=== PATIENT | female | born 1960 | race Caucasian/White ===

== ENCOUNTER → 2018-06-01 13:31 | Outpatient (CLI) | payer OTHER, SELFPAY ==
--- NOTE | 2018-06-01 | DI.RAD.S_ITS ---
PROCEDURE: XR HAND LT MIN 3V INDICATIONS: Bilateral Joint pain TECHNIQUE: 3 views of the hand(s) acquired. COMPARISON: None. FINDINGS: Bones: Osteophytic changes are noted involving left second and third DIP joints with joint space narrowing, subchondral sclerosis and marginal osteophyte formation. Mild osteoarthritic changes along radial aspect of left wrist are also seen. No fractures or dislocations. Carpal bones are normally aligned. No suspicious bony lesions. Soft tissues: No suspicious soft tissue calcifications. 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 No gross bone erosive changes. No fracture or dislocation. Dictated by: Maximino Chavez M.D. on 06/01/2018 at 18:38 Approved by: Maximino Chavez M.D. on 06/01/2018 at 18:40
--- NOTE | 2018-06-01 | DI.RAD.S_ITS ---
PROCEDURE: XR CHEST 2V INDICATIONS: Dyspnea/nicotine dependence TECHNIQUE: 2 views of the chest were acquired. COMPARISON: None. FINDINGS: Surgical changes and devices: None. Lungs and pleura: Lungs are clear. No pleural effusions or pneumothorax. Mediastinum: Mediastinal contours are normal. Heart size is normal. Bones and chest wall: No suspicious bony abnormalities. Soft tissues appear unremarkable. IMPRESSION: No acute cardio pulmonary pathology. Dictated by: Maximino Chavez M.D. on 06/01/2018 at 18:38 Approved by: Maximino Chavez M.D. on 06/01/2018 at 18:38
--- NOTE | 2018-06-01 | DI.RAD.S_ITS ---
PROCEDURE: XR HAND RT MIN 3V INDICATIONS: Bilateral Joint pain TECHNIQUE: 3 views of the hand(s) acquired. COMPARISON: None. FINDINGS: Bones: Osteoarthritic changes are noted along radial aspect of right wrist joint more prominent involving first CMC joint. Osteophytic change is also noted throughout interphalangeal joint. Small subchondral cyst formation involving radial aspect of the third proximal phalangeal head and third middle phalangeal head. No definite bony erosive changes. No fractures or dislocations. Carpal bones are normally aligned. No suspicious bony lesions. Soft tissues: No suspicious soft tissue calcifications. IMPRESSION: Osteoarthritic changes in the right hand and wrist as above. No fracture or dislocation. No definite bony erosive changes. Dictated by: Maximino Chavez M.D. on 06/01/2018 at 18:40 Approved by: Maximino Chavez M.D. on 06/01/2018 at 18:41
== END ==
PROVIDERS: PCP Physician Assistant Medical; Visit Provider Physician Assistant Medical
DX: R06.00 Dyspnea, unspecified (principal); M25.542 Pain in joints of left hand; M25.541 Pain in joints of right hand; M19.042 Primary osteoarthritis, left hand; M19.041 Primary osteoarthritis, right hand; Z87.891 Personal history of nicotine dependence
CPT/HCPCS: 71046; 73130

== ENCOUNTER → 2018-07-06 10:49 | Outpatient (CLI) | payer OTHER, SELFPAY ==
--- NOTE | 2018-08-10 16:50 | PM.PFT.1 ---
Pulmonary Function Test Referral & Results Date Patient Seen: 07/06/18 Requesting provider: Lin Rahman Results: The spirometry demonstrates an FVC of 2.98 L which is 89% of predicted. The FEV1 was measured at 2.18 L which is 84% of predicted. The FEV1/FVC ratio was 73 which is 93% of predicted. Following the administration of bronchodilator there was 12% improvement in FEV1 and a 71% improvement in FEF 25-75%. Lung volumes show an SVC of 3.22 L which is 104% of predicted. The diffusing capacity was measured at 27.42 which is 113% of predicted. The maximum voluntary ventilation was reduced Interpretation: This study demonstrates mild obstructive lung disease with some limited evidence of benefit following bronchodilator administration based on improvement in FEV1 and FEF 25-75%
== END ==
PROVIDERS: PCP Physician Assistant Medical; Visit Provider Physician Assistant Medical
DX: R06.00 Dyspnea, unspecified (principal); Z87.891 Personal history of nicotine dependence
CPT/HCPCS: 94060; 94726; 94729

== ENCOUNTER → 2018-09-28 14:58 | Outpatient (CLI) | payer OTHER, SELFPAY ==
--- NOTE | 2018-09-28 | DI.ECHO.S_ITS ---
[facility] +---------+ : : [address] : : : : [id number] : : : : Phone: [phone]+ Echocardiogram Report + + :Name: MADAY WARREN Study Date: 09/28/2018 Height: 64 in : :[facility] Weight: 142 lb : : Gender: Female BSA: 1.7 m2 : :: 1960 Age: 58 yrs BP: 126/82 mmHg: :Reason For Study: Chest pain : : Performed By: Zuri Lewis : :Referring: JEF KONG : + + Interpretation Summary Normal left ventricle size with ejection fraction 60-65%. Mildly dilated left atrium. Mild mitral regurgitation. Mild tricuspid regurgitation. The right ventricular systolic pressure is estimated to be at least 27 mmHg based on an estimated right atrial pressure of 3 mm Hg. Procedure: A two-dimensional transthoracic echocardiogram with color flow and Doppler was performed. The study quality was technically adequate. There is no prior echocardiogram noted for this patient. The patient was in normal sinus rhythm during the exam. Left Ventricle: The left ventricle is normal in size. There is normal left ventricular wall thickness. The ejection fraction is estimated to be 60-65%. There are no focal wall motion abnormalities. Diastolic parameters suggest probable normal left ventricular diastolic function and normal filling pressures. Right Ventricle: The right ventricle grossly appears normal in size with probable normal systolic function. Atria: The left atrium is mildly dilated. Right atrial size is normal. The interatrial septum is intact with no evidence for an atrial septal defect. Mitral Valve: The mitral valve is grossly normal. There is mild mitral regurgitation. Aortic Valve: The aortic valve is trileaflet. The aortic valve opens well. There is trace aortic regurgitation. Tricuspid Valve: The tricuspid valve leaflets are thin and pliable. There is mild tricuspid regurgitation. The right ventricular systolic pressure is estimated to be at least 27 mmHg based on an estimated right atrial pressure of 3 mm Hg. Pulmonic Valve: The pulmonic valve is normal in structure and function. There is no pulmonic valvular regurgitation. Great Vessels: The aortic root is normal size. The ascending aorta is at the upper limits of normal in size. The aortic arch is at the upper limits of normal in size. The IVC is of normal diameter and collapses greater than 50% with a sniff. This suggests a low right atrial pressure of 3 mm Hg. Pericardium/ Pleura There is no pericardial effusion. There is no pleural effusion. MMode/2D Measurements & Calculations LVIDd: 4.8 cm Ao root diam: 3.5 cm LVIDs: 3.3 cm Aortic Jxn: 2.7 cm FS: 31.8 % asc Aorta Diam: 3.6 cm EPSS: 0.45 cm Ao Arch Diam (Prox Trans): 3.1 cm IVSd: 1.1 cm LVPWd: 0.95 cm LV kaufman. diameter/BSA (cm/m^2): 2.8 LV sys. diameter/BSA (cm/m^2): 1.9 LA dimension: 3.2 cm RA long axis: 4.8 cm LA A2 area: 24.7 cm2 RA area: 16.4 cm2 LA A4 area: 18.4 cm2 RA vol: 47.2 ml LA length (vol): 5.3 cm RA : 27.9 ml/m2 LA vol: 73.3 ml IVC diam: 1.5 cm LA vol index: 43.3 ml/m2 RVDd major: 4.5 cm RVD1 (basal): 3.7 cm RVD2 (mid): 3.0 cm Doppler Measurements & Calculations Ao V2 max: 128.2 cm/sec AI P1/2t: 726.1 msec Ao V2 mean: 82.0 cm/sec AI dec slope: 155.6 cm/sec2 Ao max P.6 mmHg Ao mean P.2 mmHg Ao V2 VTI: 30.5 cm MV E max jose: 64.7 cm/sec TR max jose: 259.1 cm/sec MV A max jose: 51.1 cm/sec TR max P.8 mmHg MV E/A: 1.3 PA V2 max: 62.8 cm/sec Med Peak E' Jose: 7.9 cm/sec PA V2 mean: 45.2 cm/sec E/E' med: 8.2 PA mean P.91 mmHg Lat Peak E' Jose: 10.0 cm/sec PA Accel Time: 0.16 sec E/E' lat: 6.5 E/e' average: 7.3 MV dec time: 0.21 sec MV P1/2t: 63.6 msec MR ERO: 0.10 cm2 MV P1/2t max jose: 65.2 cm/sec MR flow rate: 57.1 cm3/sec MVA(P1/2t): 3.5 cm2 MR PISA radius: 0.48 cm Electronically signed by: Lamberto Horn on Reading Physician:09/28/2018 04:59 PM
== END ==
PROVIDERS: PCP Physician Assistant Medical; Visit Provider Internal Medicine Cardiovascular Disease
DX: I34.0 Nonrheumatic mitral (valve) insufficiency (principal); I07.1 Rheumatic tricuspid insufficiency; R07.9 Chest pain, unspecified; R06.09 Other forms of dyspnea
CPT/HCPCS: 93306

== ENCOUNTER → 2018-12-06 13:43 | Outpatient (CLI) | payer OTHER, SELFPAY ==
--- NOTE | 2018-12-06 | DI.MG.S_ITS ---
BILATERAL DIGITAL DIAGNOSTIC MAMMOGRAM 3D/2D WITH AUGMENTATION: 12/06/2018 CLINICAL: Implant status left breast. Comparison is made to exams dated: 01/23/2015 mammogram, 02/07/2011 mammogram, and 02/15/2010 mammogram - [facility]. There are scattered fibroglandular elements in both breasts. No significant masses, calcifications, or other findings are seen in either breast. Bilateral saline breast implants are again noted. The right side appears stable and intact. There is slight decreased size of the left breast implant with mild interval change in the appearance of the contours of the implant. Left implant shell demonstrates more irregular margins and folds compared to prior studies. IMPRESSION: INCOMPLETE: NEEDS ADDITIONAL IMAGING EVALUATION No mammographic evidence for malignancy. The left implant is likely partially collapsed and has an asymmetric appearance when compared to prior mammograms and the right side. An ultrasound is recommended for further evaluation of the left implant. This is scheduled to immediately follow this exam. The right implant is intact and has a stable appearance. This exam was interpreted at Station ID: [id number]. NOTE: For mammograms, a report in lay terms will be sent to the patient. Approximately 15% of breast malignancies will not be visualized mammographically. In the management of a palpable breast mass, a negative mammogram must not discourage biopsy of a clinically suspicious lesion. Electronically Signed By: David Constantino M.D. aty/:12/06/2018 14:36:26 ACR BI-RADS Category 0: Incomplete [id number]
--- NOTE | 2018-12-06 | DI.US.S_ITS ---
ULTRASOUND OF LEFT BREAST: 12/06/2018 CLINICAL: Implant status left breast. Comparison is made to exams dated: 12/06/2018 mammogram - [facility], 02/07/2011 mammogram, and 01/23/2015 mammogram - [facility]. Real-time ultrasound of the left breast was performed. Ocampo scale images of the real-time examination were reviewed. There are no suspicious sonographic abnormalities identified in the left breast. No intracapsular or extracapsular fluid collections seen. The overal implant appears intact but there are numerous radial folds visualized on the left side compared to a relatively well distended right breast implant which correlates with the visualized contour changes of the left breast implant. IMPRESSION: BENIGN No sonographic evidence for malignancy. Although no definite defect identified in the left breast implant, there are findings suggesting a possible slow implant leak given combination of numerous radial folds on the left compared to the right side as well as visualized contour changes on today's mammogram. Recommend further evaluation with surgical consultation. A 1 year screening mammogram is recommended. This exam was interpreted at Station ID: [id number]. Electronically Signed By: David Constantino M.D. aty/:12/06/2018 16:13:30 letter sent: Clinical Evaluation Ultrasound BI-RADS: 2 Benign
== END ==
PROVIDERS: PCP Physician Assistant Medical; Visit Provider Physician Assistant Medical
DX: R92.8 Other abnormal and inconclusive findings on diagnostic imaging of breast (principal); Z98.82 Breast implant status
CPT/HCPCS: 76642; 77066; G0279

== ENCOUNTER → 2019-01-07 09:54 | Outpatient (CLI) | payer OTHER, SELFPAY ==
--- NOTE | 2019-01-07 10:52 | PM.TREADMILL ---
Cardiac Stress Test Report Referral & Results Date Patient Seen: 01/07/19 Requesting provider: Tucker Contreras Indication: Dyspnea and palpitations Rest ECG: Unremarkable Procedure Note: Today following both written and verbal informed consent, the patient was exercised according to a standard [facility] protocol. The patient exercised for a total of 5 minutes 37 seconds achieving a maximum heart rate of 158. Patient's maximum systolic blood pressure was 160. This was an estimated 7.0 MET's. Exercise was terminated at that point because of severe fatigue reported by the patient even though she did not appear to be dyspneic at all There are no ST-T segment changes Normal heart rate and blood pressure response Oxygen saturation remained normal throughout Functional aerobic impairment rates about 5% on the sedentary scale or 18% on the active scale In recovery patient did have occasional PAC and PVC including what appeared to be 2 or 3 bursts of 4-5 beat runs of SVT Impression: No evidence of ischemia. average exercise capacity Dyspnea certainly out of proportion to any findings Minor supraventricular dysrhythmias above Please note: Actual ECG tracings can be found in the PACS system.
== END ==
PROVIDERS: Family Provider Physician Assistant Medical; PCP Physician Assistant Medical; Visit Provider Internal Medicine Cardiovascular Disease
DX: R07.89 Other chest pain (principal); R00.2 Palpitations; R06.00 Dyspnea, unspecified
CPT/HCPCS: 93016; 93017; 93018

== ENCOUNTER 2019-12-15 13:13 | Emergency (ER) | payer OTHER, SELFPAY ==
[2019-12-15 13:33] VITALS: BP 177/89; PULSE 59; RESP 17; TEMP 36.8; O2SAT 98; BMI 24.9
--- NOTE | 2019-12-15 13:42 | DI.RAD.S_ITS ---
PROCEDURE: XR KNEE LT 3V INDICATIONS: fell at work, knee pain TECHNIQUE: 3 views of the knee were acquired. COMPARISON: None. FINDINGS: Bones: No fractures or dislocations. No suspicious bony lesions. Soft tissues: No joint effusion. No suspicious soft tissue calcifications. IMPRESSION: 1. No fracture or dislocation. Dictated by: Lobito Adkins M.D. on 12/15/2019 at 13:13 Approved by: Lobito Adkins M.D. on 12/15/2019 at 13:13
--- NOTE | 2019-12-16 01:32 | ED.LOWEXIN ---
HPI - Extremity Injury (Lower) <GAYATRI Damon - Last Filed: 12/16/19 01:50> General Chief Complaint: Extremity Injury, Lower Stated Complaint: Fell at work 12/04, left knee injury not improving Time Seen by Provider: 12/15/19 13:50 Source: patient Mode of arrival: Ambulatory Limitations: no limitations History of Present Illness HPI Narrative: This is a pleasant 59-year-old female, former smoker, who had multiple upper extremity orthopedic surgery presents to ED with chief complain of pain around left patella. 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 She felt a popping sensation during the fall. She has been using ice pack and ibuprofen since the injury. She reports difficulty walking and bearing weight on affected leg and since then she feels frequent puffs and clicking sensation on affected leg. Patient reports constant aching pain which increases with walking up and down the stairs. Patient denies previous injury to affected knee or leg. Patient reports intact sensation and is able to move her toes distally. Related Data Allergies Allergy/AdvReac Type Severity Reaction Status Date / Time No Known Drug Allergies Allergy Verified 12/15/19 14:56 Review of Systems <GAYATRI Damon - Last Filed: 12/16/19 01:50> Review of Systems Narrative: General: Denies fever, chills, fatigue, malaise, sweats. HEENT: Denies sinus pain, ear pain, sore throat, difficulty swallowing, dizziness. Respiratory: Denies dyspnea, cough, wheezing, hemoptysis, sputum. Cardiovascular: Denies chest pain, palpitations, orthopnea, edema. Musculoskeletal: See HPI Skin: Denies rash, skin lesions, or other. Neurologic: Denies weakness, headache, numbness, change in speech, confusion, seizures, incoordination. Patient History <GAYATRI Damon - Last Filed: 12/16/19 01:50> Surgical History H/O breast augmentation (Acute) History of rotator cuff surgery (Acute) History of surgery on wrist (Acute) Social History Smoking Status: Former smoker Smoking Status: Former smoker alcohol intake frequency: 0-2 drinks per day Substance Use Type: does not use Exam <GAYATRI Damon - Last Filed: 12/16/19 01:50> Narrative Exam Narrative: General appearance: well developed, well nourished, in no acute distress. Head: normocephalic, atraumatic, no scalp lesions, non-tender. ENT: Hearing grossly intact. Airway patent. Neck/Thyroid: neck supple, full range of motion, no visible masses or meningeal signs. No JVD, non-tender without lymphadenopathy. Skin: no suspicious rashes, lesions over visible areas. Warm and dry and appropriate color for ethnicity. Heart: no clubbing, no cyanosis, no edema. Lungs: Breathing even and unlabored. No stridor. No accessory muscles used. Able to speak in full sentences. Chest: normal shape and expansion. Abdomen: non-obese, non-distended. Neurologic: alert and oriented. Cognitive exam, [employer] and PNS grossly intact on informal exam. Psych: good eye contact, normal affect. Initial Vital Signs Initial Vital Signs: Vital Signs Temperature 98.3 F 12/15/19 13:33 Pulse Rate 59 L 12/15/19 13:33 Respiratory Rate 17 12/15/19 13:33 Blood Pressure 177/89 H 12/15/19 13:33 Pulse Oximetry 98 12/15/19 13:33 Extrem Left lower extremity: hip/thigh Details: normal ROM; no tenderness and no swelling, knee Details: tenderness Location: of the patella, of the medial joint line, of the lateral joint line, of the pre-patellar area and of the infrapatellar area, normal ROM and knee ligament exam normal; no swelling, no abrasions, no lacerations, no ecchymosis, no crepitus, no deformity and no unusual warmth, lower leg Details: normal to inspection; no tenderness and edema noted and foot Details: normal capillary refill, normal to inspection, toes with normal ROM, vascular exam Details: dorsalis pedis pulse present and motor-sensory exam Details: light-touch normal; no tenderness <Sridevi Padilla DO - Last Filed: 12/21/19 17:21> Initial Vital Signs Initial Vital Signs: Vital Signs Temperature 98.3 F 12/15/19 13:33 Pulse Rate 59 L 12/15/19 13:33 Respiratory Rate 17 12/15/19 13:33 Blood Pressure 177/89 H 12/15/19 13:33 Pulse Oximetry 98 12/15/19 13:33 Procedures <[facility] SandraKIRK McnallyP - Last Filed: 12/16/19 01:50> Orthopedic Splinting/Casting Injury #1: Side: left Lower Extremity Injury Location: knee Lower Extremity Immobilizer: Noe wrap Post splinting neuro exam: intact Post splinting vascular exam: intact Placed by: Nursing Scores <Gildardo PickensKIRK MurrayP - Last Filed: 12/16/19 01:50> GCS Zeyad coma scale eye opening: Spontaneous Zeyad coma scale verbal response: Orientated Winslow coma scale motor response: Obey commands Zeyad coma scale total score: 15 MDM - Extremity Injury (Lower) <Gildardo PickensKIRK PalumboP - Last Filed: 12/16/19 01:50> Differential Diagnosis Differential diagnosis: Likely acute internal derangement of knee and other (Patella fracture, knee sprain, knee strain) Medical Records Attestation: I reviewed the patient's medical records. Imaging Data XR Knee-LT: Radiologist's Impression: [place] [address] XRay Report Signed Patient: Sherry Magdaleno [facility]#: [id number] : 1960Acct:[id number] Age/Sex: 59 / FDate of Service: 12/15/19 Loc: ED Accession Number: [id number] Procedure: XR knee LT 3V Ordering Provider: Sridevi Padilla D.O. PROCEDURE: XR KNEE LT 3V INDICATIONS: fell at work, knee pain TECHNIQUE: 3 views of the knee were acquired. COMPARISON: None. FINDINGS: Bones: No fractures or dislocations. No suspicious bony lesions. Soft tissues: No joint effusion. No suspicious soft tissue calcifications. IMPRESSION: 1. No fracture or dislocation. Dictated by: Lobito Adkins M.D. on 12/15/2019 at 13:13 Approved by: Lobito Adkins M.D. on 12/15/2019 at 13:13 [facility] Narrative Medical decision making narrative: This is a 59-year-old female who had injured her left knee 10 days ago on 12/05/19 at work after she accidentally slipped and a liquid so and landed on left knee and face. Patient has been using ice and ibuprofen at home but pain still persists. Patient has intact sensation and mobility distally. No obvious deformity or crepitus appreciated. Pain around left patella without significant edema. Patient is able to flex and extend with slightly increased discomfort. She is able to ambulate with slightly limping gait. X-ray test does not show acute fractures or dislocations or joint effusion. Patient advised to use knee brace or Noe wrap for comfort and to continue use Tylenol and or Motrin as needed for discomfort. Patient advised to follow-up with L&I provider or primary care physician for re-evaluation and possible a referral to physical therapist. Patient informed that she may require orthopedist evaluation pain persists and if she has instability on left knee. Return precautions were discussed and She verbalized understanding in agreement with the treatment plan. Discharge Plan Departure Patient Disposition: Home Clinical Impression: Contusion of knee Qualifiers: Encounter type: initial encounter Laterality: left Qualified Code(s): S80.02XA - Contusion of left knee, initial encounter Fall Qualifiers: Encounter type: initial encounter Qualified Code(s): W19.XXXA - Unspecified fall, initial encounter Discharge Date/Time: 12/15/19 15:17 Instructions: DI for Knee Pain Activity Restrictions/Additional Instructions: You have been diagnosed with [left knee contusion from a fall. X-ray test on left knee Does not show fractures or dislocations.]. What to do: *Take your medications as directed. Please use [id number] Tylenol and or Motrin as needed for discomfort. Use Noe wrap or knee brace for support and comfort as needed. *Follow up with your primary care provider in 2-3 days, call for an appointment. Let them know you were seen in the ED and that we asked you to be seen in follow up. If pain persists another week to 10 days, consider a referral to physical therapist and/a referral to orthopedist for an evaluation. *Return to ED if you have any new, worsening, or concerning symptoms, such as [chest pain, breathing difficulty, unable to tolerate fluids, worsening pain, swelling to knee, redness spreading to knee, tingling/numbness/weakness to distal leg or any acute concerns]. Referrals: Lin Rahman [Primary Care Provider] -
== END 2019-12-15 15:17 | disposition home or self-care (01) ==
PROVIDERS: Emergency Provider Nurse Practitioner Family; Family Provider Physician Assistant Medical; PCP Physician Assistant Medical
DX: S80.02XA Contusion of left knee, initial encounter (principal); W19.XXXA Unspecified fall, initial encounter; Y99.0 Civilian activity done for income or pay
CPT/HCPCS: 73562; 99283

== ENCOUNTER → 2021-09-16 12:29 | Outpatient (CLI) | payer OTHER, SELFPAY ==
--- NOTE | 2021-09-16 | DI.RAD.S_ITS ---
PROCEDURE: XR CHEST 2V INDICATIONS: Other chest pain TECHNIQUE: 2 views of the chest were acquired. COMPARISON: [facility], CR, XR CHEST 2V, 06/01/2018, 13:44. FINDINGS: Surgical changes and devices: None. Lungs and pleura: Lungs are clear. No pleural effusions or pneumothorax. Mediastinum: Mediastinal contours are normal. Heart size is normal. Bones and chest wall: No suspicious bony abnormalities. Soft tissues appear unremarkable. IMPRESSION: No acute cardiopulmonary disease process. Dictated by: Arabella Thrasher MD, PhD on 09/16/2021 at 14:43 Approved by: Arabella Thrasher MD, PhD on 09/16/2021 at 14:44
== END ==
PROVIDERS: Family Provider Physician Assistant Medical; PCP Physician Assistant Medical; Referring Provider Nurse Practitioner Family; Visit Provider Nurse Practitioner Family
DX: R07.89 Other chest pain (principal)
CPT/HCPCS: 71046

== ENCOUNTER → 2022-04-28 15:29 | Outpatient (CLI) | payer OTHER, SELFPAY ==
--- NOTE | 2022-04-28 15:33 | DI.RAD.S_ITS ---
PROCEDURE: XR FOOT LT MIN 3V INDICATIONS: BUNIONS, FOOT PAIN, ANKLE PAIN TECHNIQUE: 3 views of the foot were acquired. COMPARISON: None. FINDINGS: Bones: No fractures or dislocations. There is hallux primus valgus deformity. There is a small calcaneal spur. The calcaneal pitch is 22?. No suspicious bony lesions. Soft tissues: No tibiotalar joint effusion. Achilles tendon appears normal. IMPRESSION: Hallux primus valgus deformity. Normal calcaneal pitch. Dictated by: Lexy Alexandre M.D. on 04/28/2022 at 17:52 Approved by: Lexy Alexandre M.D. on 04/28/2022 at 17:52
--- NOTE | 2022-04-28 15:33 | DI.RAD.S_ITS ---
PROCEDURE: XR ANKLE LT MIN 3V INDICATIONS: BUNIONS, FOOT PAIN, ANKLE PAIN TECHNIQUE: 3 views of the ankle were acquired. COMPARISON: None. FINDINGS: Bones: No fractures or dislocations. Mild degenerative changes present at the medial malleolus. Ankle mortise is normally aligned. No suspicious bony lesions. Soft tissues: No tibiotalar joint effusion. Achilles tendon appears normal. IMPRESSION: Mild degenerative change. No acute radiographic findings. Dictated by: Lexy Alexandre M.D. on 04/28/2022 at 17:51 Approved by: Lexy Alexandre M.D. on 04/28/2022 at 17:51
--- NOTE | 2022-04-28 15:33 | DI.RAD.S_ITS ---
PROCEDURE: XR FOOT RT MIN 3V INDICATIONS: BUNIONS, FOOT PAIN, ANKLE PAIN TECHNIQUE: 3 views of the foot were acquired. COMPARISON: None. FINDINGS: Bones: No fractures or dislocations. Hallux primus valgus deformity is noted. No suspicious bony lesions. The calcaneal pitch is 27?. Soft tissues: No tibiotalar joint effusion. Achilles tendon appears normal. IMPRESSION: Hallux primus valgus deformity. Normal calcaneal pitch. Dictated by: Lexy Alexandre M.D. on 04/28/2022 at 17:51 Approved by: Lexy Alexandre M.D. on 04/28/2022 at 17:52
--- NOTE | 2022-04-28 15:33 | DI.RAD.S_ITS ---
PROCEDURE: XR ANKLE RT MIN 3V INDICATIONS: BUNIONS, FOOT PAIN, ANKLE PAIN TECHNIQUE: 3 views of the ankle were acquired. COMPARISON: None. FINDINGS: Bones: No fractures or dislocations. Degenerative changes are present at the medial malleolus. Ankle mortise is normally aligned. No suspicious bony lesions. Soft tissues: No tibiotalar joint effusion. Achilles tendon appears normal. IMPRESSION: Degenerative change. No acute radiographic findings. Dictated by: Lexy Alexandre M.D. on 04/28/2022 at 17:50 Approved by: Lexy Alexandre M.D. on 04/28/2022 at 17:51
== END ==
PROVIDERS: Family Provider Physician Assistant Medical; PCP Physician Assistant Medical; Referring Provider Podiatrist Foot & Ankle Surgery; Visit Provider Podiatrist Foot & Ankle Surgery
DX: M25.571 Pain in right ankle and joints of right foot (principal); M25.572 Pain in left ankle and joints of left foot; M20.12 Hallux valgus (acquired), left foot; M20.11 Hallux valgus (acquired), right foot; M15.8 Other polyosteoarthritis; M72.2 Plantar fascial fibromatosis
CPT/HCPCS: 73610; 73630

== ENCOUNTER → 2022-07-07 10:50 | Outpatient (CLI) | payer OTHER, SELFPAY ==
--- NOTE | 2022-07-07 10:53 | DI.RAD.S_ITS ---
PROCEDURE: XR WRIST LT MIN 3V INDICATIONS: L I left wrist injury TECHNIQUE: 4 views of the wrist were acquired. COMPARISON: None. FINDINGS: Bones: No fractures or dislocations. No suspicious bony lesions. Anchors within the proximal 1st and 2nd metacarpals. Scaphoid view: Negative Soft tissues: No suspicious soft tissue calcifications. IMPRESSION: 1. Postsurgical sequelae. 2. No acute fracture. No osseous lesion. If symptoms and/or clinical suspicion for pathology persist, further assessment with repeat, or advanced imaging (e.g., CT, MRI, or bone scan) may be helpful for further assessment. Dictated by: Francine Alves M.D. on 07/07/2022 at 13:27 Transcribed by: SOPHY on 07/07/2022 at 13:28 Approved by: Francine Alves M.D. on 07/07/2022 at 16:09
== END ==
PROVIDERS: Family Provider Physician Assistant Medical; PCP Physician Assistant; Referring Provider Nurse Practitioner Family; Visit Provider Nurse Practitioner Family
DX: S69.92XA Unspecified injury of left wrist, hand and finger(s), initial encounter (principal); X58.XXXA Exposure to other specified factors, initial encounter
CPT/HCPCS: 73110

== ENCOUNTER → 2023-01-03 08:19 | Outpatient (CLI) | payer OTHER, SELFPAY ==
--- NOTE | 2023-01-03 08:22 | DI.US.S_ITS ---
PROCEDURE: US ABDOMEN COMPLETE INDICATIONS: COLICKY AND LEFT UPPER QUADRANT PAIN TECHNIQUE: Real-time scanning was performed of the abdominal and retroperitoneal organs, with image documentation. COMPARISON: None. FINDINGS: Liver: Liver is normal in size and homogeneous in echotexture. Gallbladder: No findings of gallstones or sludge are seen. The gallbladder wall is not thickened, measuring 3 mm or less. No specific pericholecystic fluid is seen. The sonographic Pineda sign is negative. Biliary ducts: Intrahepatic bile ducts are non-dilated. Extrahepatic bile duct caliber measures 5 mm. Normal is 6-7 mm or less in diameter, or 10 mm or less post-cholecystectomy. Pancreas: Visualized portions of the pancreas are sonographically normal. Spleen: Spleen is normal in size and demonstrates multiple punctate echogenic foci, measuring up to 3 mm. Additional likely splenic artery calcification can be seen. . Kidneys: Kidneys are normal in size and echotexture. Right kidney measures 10.9 cm long; left kidney measures 10.2 cm long. No nephrolithiasis. No solid masses. Bilateral kidney pelvicaliectasis is seen, left worse than right. Aorta: Visualized aorta is normal in caliber at less than 3 cm. Iliacs: Proximal common iliac arteries are normal in caliber at less than 2.5 cm. IVC: Intrahepatic inferior vena cava is patent. Miscellaneous: No free abdominal fluid. IMPRESSION: Bilateral pelvicaliectasis can be seen, left worse than right. If it would be helpful for clinical management decision making in this patient with this given history, please consider a dedicated CT for further evaluation. Additional findings: Calcified splenic granulomas Apparent splenic artery calcification. Dictated by: Doron Jones M.D. on 01/03/2023 at 10:04 Approved by: Doron Jones M.D. on 01/03/2023 at 10:07
== END ==
PROVIDERS: Family Provider Physician Assistant Medical; PCP Registered Nurse; Referring Provider Registered Nurse; Visit Provider Registered Nurse
DX: D73.9 Disease of spleen, unspecified (principal); N28.89 Other specified disorders of kidney and ureter; R10.12 Left upper quadrant pain
CPT/HCPCS: 76700

== ENCOUNTER → 2023-01-17 11:33 | Outpatient (CLI) | payer OTHER, SELFPAY ==
--- NOTE | 2023-01-17 12:50 | DI.CT.S_ITS ---
PROCEDURE: CT ABDOMEN PELVIS W CON INDICATIONS: Left upper quadrant pain TECHNIQUE: After the administration of oral and IV contrast, axial sections were acquired from the lung bases to the pubic symphysis. Coronal and sagittal reformats were performed. For radiation dose reduction, the following was used: automated exposure control, adjustment of mA and/or kV according to patient size. COMPARISON: [facility], , US ABDOMEN COMPLETE, 01/03/2023, 8:37. FINDINGS: Image quality: Excellent. Lung bases: Unremarkable. Heart: No significant findings. ABDOMEN: Liver: Unremarkable. Gallbladder: Unremarkable. Biliary ducts: Unremarkable. Pancreas: Unremarkable. Spleen: At least 1 calcified granuloma can be seen within the spleen. Adrenal Glands: Unremarkable. Kidneys and Ureters: The right kidney demonstrates a mild extrarenal pelvis. The left kidney demonstrates a prominent renal pelvis as well as mild hydronephrosis. No definite hydroureter can be seen on either side. The kidneys demonstrate normal size and enhance symmetrically. Stomach and Bowel: There is moderate wall thickening seen involving the proximal stomach. No dilated loops of small bowel are seen. There is a moderate volume of stool seen within the colon. No focal colon abnormality is seen. Colonic diverticulosis is seen, without findings of active diverticulitis. Peritoneum: No abnormal intraperitoneal fluid. No free air. Ventral Wall: No hernia. Abdominal Nodes: No retroperitoneal or mesenteric adenopathy by size criteria. Vessels: Aorta and inferior vena cava are normal in size. PELVIS: Pelvic Organs: The uterus appears normal for age. No adnexal masses are seen. Bladder: Unremarkable. Pelvic Nodes: No enlarged lymph nodes. Miscellaneous: No inguinal hernias are seen. Bones: Focal L5-S1 degenerative change is seen. Milder degenerative changes are seen elsewhere. IMPRESSION: Moderate wall thickening can be seen involving the proximal stomach. In this patient with a presenting history left upper quadrant pain, differential diagnosis includes under distension and pathologic thickening. If clinically appropriate, please consider upper endoscopy for further evaluation. Mild prominence of the renal collecting system can be seen on each side, left worse than right. No cause of obstruction is seen. The appearance is most likely related to the patient's baseline state. There is a moderate amount of stool seen within the colon. Please correlate with an underlying history of constipation. Additional findings: Prior granulomatous exposure. Diverticulosis, without active diverticulitis Focal L5-S1 degenerative change Dictated by: Doron Jones M.D. on 01/17/2023 at 16:35 Approved by: Doron Jones M.D. on 01/17/2023 at 16:39
== END ==
PROVIDERS: Family Provider Physician Assistant Medical; PCP Registered Nurse; Referring Provider Registered Nurse; Visit Provider Registered Nurse
DX: Q89.09 Congenital malformations of spleen (principal); R10.12 Left upper quadrant pain; R93.41 Abnormal radiologic findings on diagnostic imaging of renal pelvis, ureter, or bladder; K57.90 Diverticulosis of intestine, part unspecified, without perforation or abscess without bleeding; M47.817 Spondylosis without myelopathy or radiculopathy, lumbosacral region
CPT/HCPCS: 74177

== ENCOUNTER → 2023-02-07 14:42 | Outpatient (CLI) | payer OTHER, SELFPAY ==
--- NOTE | 2023-02-07 14:43 | DI.RAD.S_ITS ---
PROCEDURE: XR FINGER RT MIN 2V INDICATIONS: Right 3rd finger laceration TECHNIQUE: AP hand, 2 views of the right 3rd finger(s) acquired. COMPARISON: None. FINDINGS: Bones: No fractures or dislocations. No suspicious bony lesions. Suture anchors in the base of the 1st and 2nd metacarpals. Soft tissues: No suspicious soft tissue calcifications. IMPRESSION: No fracture. No acute osseous lesion. If symptoms and/or clinical suspicion for pathology persists, further assessment with repeat radiographs (7-10 days) or advanced imaging (e.g. CT, MRI or bone scan) should be considered. Dictated by: Arabella Thrasher MD, PhD on 02/07/2023 at 15:11 Approved by: Arabella Thrasher MD, PhD on 02/07/2023 at 15:11
== END ==
PROVIDERS: Family Provider Physician Assistant Medical; PCP Registered Nurse; Referring Provider Physician Assistant; Visit Provider Physician Assistant
DX: S61.212A Laceration without foreign body of right middle finger without damage to nail, initial encounter (principal); X58.XXXA Exposure to other specified factors, initial encounter
CPT/HCPCS: 73140

== ENCOUNTER 2023-02-17 12:45 | Day surgery (SDC) | payer OTHER, SELFPAY ==
--- NOTE | 2023-02-17 | PATH_ITS ---
[facility] Accession Number: [id number] No. of containers..02 Tissue . 01 Material submitted: . PART A: duodenum - DUODENUM PART B: gastrointestinal site - GASTRIC . 01 Diagnosis: A. Duodenum, Biopsy: Duodenal mucosa with no diagnostic abnormality. Negative for active inflammation, features of sprue, dysplasia, or malignancy. . B. Stomach, Biopsy: Body-type mucosa with mild chronic gastritis. Negative for Helicobacter by immunohistochemistry. Negative for intestinal metaplasia. Negative for dysplasia and malignancy. [facility] 03/01/2023 1044 Local . 01 Electronically signed: . Mel Carrillo MD, Pathologist NPI- [id number] . 01 Gross description: . Part A: DUODENUM: Received in formalin are 2 fragment(s) of montalvo, soft tissue measuring 0.1 x 0.1 x 0.1 cm to 0.2 x 0.2 x 0.2 cm submitted entirely in 1 cassette(s) Part B: GASTRIC: Received in formalin are 2 fragment(s) of montalvo, soft tissue measuring 0.2 x 0.2 x 0.2 cm to 0.4 x 0.2 x 0.2 cm submitted entirely in 1 cassette(s) /AN 02/20/2023 1933 Local . 01 Microscopic: . B. An immunohistochemical stain was performed to evaluate for Helicobacter organisms and is negative. The control stain showed appropriate reactivity. . * This test was developed and its performance characteristics determined by [employer]. It has not been cleared or approved by the U.S. Food and Drug Administration. The FDA has determined that such clearance or approval is not necessary. This test is used for clinical purposes. It should not be regarded as investigational or for research. . 01 Pathologist provided ICD-10: R10.9 . 01 CPT . 577308, 640357, O32716 Specimen Comment: A courtesy copy of this report has been sent to [phone] Performed at: 01 [facility] [address] [place] [id number] MD Lobito Mclean MD Phone: [phone]
[2023-02-17 13:14] VITALS: BP 133/82; PULSE 66; RESP 18; TEMP 36.4; O2SAT 98; BMI 25.5
[2023-02-17] MEDS: LACTATED RINGERS 1,000 ML 120 ML IV (13:39)
--- NOTE | 2023-02-17 13:52 | PM.HP.1 ---
History of Present Illness History of Present Illness Date Patient Seen: 02/17/23 Time Patient Seen: 13:52 Chief complaint: SDC Narrative: 62-year-old woman here for diagnostic esophagoduodenoscopy. She reports moderate epigastric pain which has developed over the past few months and she recently had a CT abdomen pelvis which demonstrated moderate gastric wall thickening. No prior upper endoscopy. [facility] Surgical History H/O breast augmentation History of surgery on wrist History of rotator cuff surgery Social History Smoking Status: Former smoker alcohol intake: former Meds Home Medications and Allergies Home Medications Medication Instructions Recorded Confirmed Type acyclovir 400 mg tablet 400 mg PO BID 02/07/23 02/17/23 History acyclovir 400 mg tablet 400 mg PO BID blood clot 02/17/23 02/17/23 History omeprazole 20 mg PO DAILY 02/17/23 02/17/23 History Allergies Allergy/AdvReac Type Severity Reaction Status Date / Time No Known Drug Allergies Allergy Verified 02/17/23 13:39 Exam Vital Signs (past 8 hours): - 02/17/23 13:14 Temperature 97.6 F Pulse Rate 66 Respiratory Rate 18 Blood Pressure 133/82 Pulse Oximetry 98 Oxygen Delivery Method Room Air Oxygen Delivery Method Room Air Narrative Exam Narrative: General adult man woman oriented no acute distress Chest nonlabored respiration Extremities warm well perfused Assessment & Plan Assessment and plan (1) Gastric wall thickening: Status: Acute Assessment & Plan narrative: 62-year-old woman with epigastric pain and gastric thickening on imaging here for diagnostic esophagoduodenoscopy. Overview of the procedure was discussed. Risks including but not limited to bleeding, intestinal injury were discussed. She provides her verbal and written consent to proceed.
[2023-02-17 14:22] VITALS: BP 112/82; PULSE 75; RESP 20; TEMP 37; O2SAT 97
--- NOTE | 2023-02-17 14:30 | PM.OP.EGD ---
Operative Date/Time/Diagnoses Date of procedure: 02/17/23 Time of procedure: 14:30 Pre-op diagnosis: Gastric wall thickening Post-op diagnosis: other (Gastritis) Procedure & Clinicians Study performed: Esophagoduodenoscopy diagnostic Same procedure as scheduled: Yes Indications: Gastric wall thickening with associated epigastric pain. Surgeon: Fausto Christiansen Procedure Notes Procedure in detail: The history and physical was performed/updated and the patient is ASA class is 2. The procedure was discussed in detail with the patient. Potential risks complications including infection, bleeding, missed diagnosis, perforation, need for surgery, and were explained. Their questions were answered and informed consent was obtained. Patient placed in left lateral decubitus position. Time out was performed. Procedural sedation was administered by Anesthesia. A bite block was placed. the scope was inserted into the mouth and advanced through the esophagus and into the stomach. The pylorus was intubated and the duodenum was examined to the 2nd portion. The scope was then withdrawn into the stomach and was retroflexed. The stomach was decompressed and scope was withdrawn slowly through the esophagus. FINDINGS Mild diffuse gastritis and duodenitis. Biopsies obtained with forceps. The patient tolerated the procedure well and will be discharged when they meet criteria. Specimen(s): other (Gastric duodenal) Impression: Gastritis Post-procedure Plan for aftercare: Increase omeprazole 20 mg twice daily for 1 month Disposition: same day surgery
[2023-02-17 14:31] VITALS: BP 126/86; PULSE 71; RESP 18; O2SAT 100
[2023-02-17 14:33] VITALS: BP 131/81; PULSE 61; RESP 100; TEMP 36.3
[2023-02-17 14:39] VITALS: BP 129/79; PULSE 52; RESP 16; O2SAT 99
== END 2023-02-17 14:55 | disposition home or self-care (01) ==
PROVIDERS: Family Provider Physician Assistant Medical; PCP Registered Nurse; Referring Provider Surgery; Visit Provider Surgery
PROC: 0DJ08ZZ Inspection of Upper Intestinal Tract, Via Natural or Artificial Opening Endoscopic (ICD-10-PCS; CPT 43235; principal; 2023-02-17 13:45)
DX: R93.3 Abnormal findings on diagnostic imaging of other parts of digestive tract (principal); K29.50 Unspecified chronic gastritis without bleeding
CPT/HCPCS: 43239; J2704

== ENCOUNTER 2023-10-05 16:42 | Emergency (ER) | payer OTHER, SELFPAY ==
[2023-10-05] VITALS (12 sets, daily range): BP systolic 107–149; BP diastolic 65–95; PULSE 85–102; RESP 18; TEMP 36.8–37.3; O2SAT 95–98; BMI 24.9
[2023-10-05 18:15] LABS: Add Manual Diff / Slide Review NO; Basophils Absolute Auto 100 /uL (0-100); Basophils Percent Auto 0.7 % (0-2); Eosinophils Absolute Auto 400 /uL (0-450); Eosinophils Percent Auto 2.4 % (2-4); Hematocrit 33.2 % (36-46); Hemoglobin 11.1 g/dL (12.0-16.0); Lymphocytes Absolute Auto 1900 /uL (1100-4500); Lymphocytes Percent Auto 12.3 % (25-40); Mean Corpuscular HGB Conc 33.5 % (30-36); Mean Corpuscular Hemoglobin 29.5 PG (26-34); Monocytes Absolute Auto 1200 /uL (0-900); Neutrophils Absolute Auto 11500 /uL (1500-7000); Neutrophils Percent Auto 76.6 % (50-75); Platelet Count 451 X10^3/uL (150-400); Red Blood Cell Count 3.77 X10^6/uL (4.0-5.2); Red Cell Distribution Width 13.4 % (11.6-14.8); White Blood Cell Count 15.1 X10^3/uL (4.5-11.0)
[2023-10-05 18:28] LABS: Alanine Aminotransferase 21 IU/L (<35); Albumin 4.2 g/dL (3.5-5.0); Albumin Globulin Ratio 1.3 (1.0-2.8); Alkaline Phosphatase 89 U/L (38-126); Aspartate Aminotransferase 24 IU/L (14-36); BUN Creatinine Ratio 16.1 (6-22); Bilirubin Total 0.4 mg/dL (0.2-1.3); Blood Urea Nitrogen 9 mg/dL (7-17); Calcium 9.2 mg/dL (8.4-10.2); Carbon Dioxide 25 mmol/L (22-32); Chloride 101 mmol/L (98-107); Estimated Glomerular Filt Rate > 60 mL/min (>60); Globulin 3.2 g/dL (1.7-4.1); Glucose 113 mg/dL (80-110); HEMOLYSIS < 15 (0-50); Lipase 27 U/L (23-300); Potassium 3.4 mmol/L (3.4-5.1); Sodium 134 mmol/L (137-145); Total Protein 7.4 g/dL (6.3-8.2)
--- NOTE | 2023-10-05 18:30 | EKG_ITS ---
[place] [address] [place] [id number] Test Date: 2023-10-05 Pat Name: Sherry Magdaleno Department: [facility] Room: Gender: Female Newcomer Hostess: ADINA : 1960 Requested By: Order Number: [id number] Reading MD: Masood Marie Measurements Intervals Carmi Rate: 83 P: 49 AL: 124 QRS: 16 QRSD: 88 T: 42 QT: 364 QTc: 427 Interpretive Statements Normal sinus rhythm Nonspecific ST abnormality Electronically Signed On 10-07-2023 18:28:18 PDT by Masood Marie
--- NOTE | 2023-10-05 18:44 | ED_ITS ---
HPI - Abdominal Pain General Chief Complaint: Abdominal Pain Stated Complaint: sent by [facility], for possible appendicitis Time Seen by Provider: 10/05/23 18:06 History of Present Illness HPI narrative: 63-year-old otherwise healthy female presents for abdominal pain concerning for appendicitis. Patient states that she has had chronic constipation that has not been very responsive to any laxatives that she has used. Over the last 3-4 days she has had worsening abdominal pain. She went to the walk-in clinic, where she was told that she had rebound tenderness that was concerning for appendicitis and referred to the emergency department. Patient denies fevers, chills, nausea, vomiting. Last colonoscopy 1 year ago, patient states it was significant only for diverticulosis without diverticulitis Related Data Home Medications Medication Instructions Recorded Confirmed acyclovir 400 mg tablet 400 mg PO BID 02/07/23 02/17/23 acyclovir 400 mg tablet 400 mg PO BID blood clot 02/17/23 02/17/23 Previous Rx's Medication Instructions Recorded omeprazole 20 mg capsule,delayed 20 mg PO BID #60 caps 02/17/23 release amoxicillin 875 mg-potassium 1 tab PO Q12H #20 tabs 10/05/23 clavulanate 125 mg tablet Allergies Allergy/AdvReac Type Severity Reaction Status Date / Time No Known Drug Allergies Allergy Verified 02/17/23 13:39 Patient History Surgical History H/O breast augmentation History of surgery on wrist History of rotator cuff surgery Social History Smoking Status: Former smoker alcohol intake: former Smoking Status: Former smoker alcohol intake frequency: 0-2 drinks per day Substance Use Type: does not use Exam Initial Vital Signs Initial Vital Signs: Vital Signs Temperature 99.1 F 10/05/23 16:47 Pulse Rate 102 H 10/05/23 16:47 Respiratory Rate 18 10/05/23 16:47 Blood Pressure 149/95 H 10/05/23 16:47 Pulse Oximetry 98 10/05/23 16:47 Oxygen Delivery Method Room Air 10/05/23 16:47 Const: Awake, alert, no acute distress, nontoxic appearing Cardiac: regular rate, regular rhythm RESP: unlabored, clear bilaterally, no wheezing GI: Soft, generalized tenderness to deep palpation without rebound or guarding Skin: Warm, Dry, intact, no rashes Neuro: AO x3, CN II-XII grossly intact, moves all extremities Course Orders Ordered: ED Orders 10/05/23 17:59 EKG-12 Lead Stat 10/05/23 18:10 Complete Blood Count AUTO DIFF Stat Comprehensive Metabolic Panel Stat Lipase Stat 10/05/23 18:44 CT abdomen pelvis w con Stat 10/05/23 19:55 Urine Culture Stat Urine Microscopic Stat Discontinued Medications Amoxicillin/Clavulanate Potassium (Amoxicillin/Clav 875/125 Mg) 1 tab PO NOW ONE Stop: 10/05/23 20:50 Last Admin: 10/05/23 20:54 Dose: 1 tab Documented By: Ondansetron HCl (Ondansetron 4 Mg/2 Ml Inj) 4 mg IV NOW PRN PRN Reason: Nausea And Vomiting Ondansetron HCl (Ondansetron 4 Mg Odt) 4 mg PO NOW PRN PRN Reason: Nausea And Vomiting Vital Signs Vital signs: Vital Signs - 8 hr 10/05/23 16:47 10/05/23 18:08 10/05/23 18:30 Temperature 99.1 F Pulse Rate 102 H 90 88 Respiratory Rate 18 Blood Pressure 149/95 H Pulse Oximetry 98 98 97 Oxygen Delivery Method Room Air Room Air 10/05/23 18:31 10/05/23 18:31 10/05/23 19:00 Temperature Pulse Rate 88 101 H Respiratory Rate Blood Pressure 115/74 Pulse Oximetry 98 95 Oxygen Delivery Method 10/05/23 19:01 10/05/23 19:01 10/05/23 19:37 Temperature Pulse Rate 94 H 90 Respiratory Rate Blood Pressure 135/65 Pulse Oximetry 97 96 Oxygen Delivery Method 10/05/23 20:00 10/05/23 20:05 10/05/23 20:05 Temperature Pulse Rate 88 89 Respiratory Rate Blood Pressure 137/76 Pulse Oximetry 96 97 Oxygen Delivery Method 10/05/23 20:30 10/05/23 20:30 10/05/23 20:56 Temperature 98.2 F Pulse Rate 90 85 Respiratory Rate 18 Blood Pressure 107/75 107/85 Pulse Oximetry 96 98 Oxygen Delivery Method Room Air Room Air 10/05/23 21:00 10/05/23 21:00 Temperature 99.1 F Pulse Rate 98 H Respiratory Rate Blood Pressure 116/72 Pulse Oximetry 97 Oxygen Delivery Method MDM - Abdominal Pain Differential Diagnosis Differential diagnosis: Likely abdominal pain, acute appendicitis and calculus of kidney Lab Data 10/05/23 18:10 10/05/23 18:10 Labs: Lab Results 10/05/23 10/05/23 Range/Units 18:10 19:55 WBC 15.1 H (4.5-11.0) X10^3/uL RBC 3.77 L (4.0-5.2) X10^6/uL Hgb 11.1 L (12.0-16.0) g/dL Hct 33.2 L (36-46) % MCV 88.0 (80-100) fL MCH 29.5 (26-34) PG MCHC 33.5 (30-36) % RDW 13.4 (11.6-14.8) % Plt Count 451 H (150-400) X10^3/uL Neut % (Auto) 76.6 H (50-75) % Lymph % (Auto) 12.3 L (25-40) % [place] % (Auto) 8.0 (3-14) % Eos % (Auto) 2.4 (2-4) % Baso % (Auto) 0.7 (0-2) % Neut # (Auto) 78058 H (3738-4212) /uL Lymph # (Auto) 1900 (1971-2060) /uL [place] # (Auto) 1200 H (0-900) /uL Eos # (Auto) 400 (0-450) /uL Baso # (Auto) 100 (0-100) /uL Sodium 134 L (137-145) mmol/L Potassium 3.4 (3.4-5.1) mmol/L Chloride 101 (98-107) mmol/L Carbon Dioxide 25 (22-32) mmol/L BUN 9 (7-17) mg/dL Creatinine 0.56 (0.52-1.04) mg/dL Estimated GFR > 60 (>60) mL/min BUN/Creatinine Ratio 16.1 (6-22) Glucose 113 H (80-110) mg/dL Calcium 9.2 (8.4-10.2) mg/dL Total Bilirubin 0.4 (0.2-1.3) mg/dL AST 24 (14-36) IU/L ALT 21 (<35) IU/L Alkaline Phosphatase 89 (38-126) U/L Total Protein 7.4 (6.3-8.2) g/dL Albumin 4.2 (3.5-5.0) g/dL Globulin 3.2 (1.7-4.1) g/dL Albumin/Globulin Ratio 1.3 (1.0-2.8) Lipase 27 (23-300) U/L Urine RBC 0-1/hpf (0-5/HPF) Urine WBC 0-1/hpf (0-5/HPF) Ur Squamous Epith Cells 0-1 /hpf (0-5/HPF) Calcium Oxalate Crystal Few H Urine Bacteria Occasional (0-1) (None) Urine Mucus 2+ H (Negative) Ur Culture Indicated? Specimen cultured Vol Urine Centrifuged 10ml (spun) Point of care testing: Urine Dip Bedside Urine Glucose Negative Bedside Urine Bilirubin - Negative Bedside Urine Ketone ++ 40 Urine Specific [place] 1.010 Bedside Urine Occult Blood + Bedside Urine pH 6.5 Bedside Urine Protein + 30 Bedside Urine Urobilinogen - Negative Bedside Urine Nitrite - Negative Bedside Urine Leukocytes +/- [address] scan - abdomen/pelvis: Radiologist's Impression: PROCEDURE: CT ABDOMEN PELVIS W CON INDICATIONS: 3 TECHNIQUE: After the administration of intravenous contrast, axial sections acquired from the lung bases to the pubic symphysis. Coronal and sagittal reformats were performed. For radiation dose reduction, the following was used: automated exposure control, adjustment of mA and/or kV according to patient size. COMPARISON: [facility], CT, CT ABDOMEN PELVIS W CON, 01/17/2023, 12:44. FINDINGS: Image quality: Diagnostic Lower chest: Lung bases appear unremarkable. Possible mild nonspecific wall thickening at the gastroesophageal junction Liver: Unremarkable Gallbladder and biliary system: Unremarkable, nondilated Pancreas: No ductal dilation Spleen: Nonenlarged Adrenals: No discrete nodules Kidneys: No solid mass. Mild left pelviectasis. No calcified obstructing stone identified Vessels and lymph nodes: The main portal vein appears patent. No abdominal aortic aneurysm or pathologic lymph nodes by size criteria. Bowel and peritoneum: No evidence of acute small bowel obstruction. No rim enhancing abscess. Moderate to severe inflammatory changes involving the distal colon and rectum, also involving the transverse colon, cecum, and proximal colon. Appendix not definitely seen no drainable ascites Body wall: Unremarkable Pelvis: Bladder is under distended and overall unremarkable. There are prominent pelvic veins, sometimes seen with pelvic congestion. Reproductive organs are not well evaluated on this study Bones: No acute or suspicious osseous finding. There are degenerative changes. IMPRESSION: Multifocal moderate to severe proctocolitis. Consider colonoscopy correlation. The appendix was not discretely identified. If there is high concern for acute appendicitis, consider repeat imaging, possibly with oral contrast. Other findings as above. Dictated by: Prashant Green M.D. on 10/05/2023 at 20:31 Approved by: Prashant Green M.D. on 10/05/2023 at 20:37 [facility] Narrative Medical decision making narrative: Well-appearing patient with a acute on chronic abdominal pain. Patient's abdominal exam reveals tenderness to deep palpation diffusely throughout the abdomen. I do not appreciate any rebound tenderness, guarding, any peritoneal signs. Laboratory work and imaging to be obtained. Patient declined pain medications at this time. Laboratory work shows WBC count 15.1, hemoglobin 11.1, platelets 451, sodium 134, potassium 3.4, creatinine 0.56, normal liver enzymes. CT of the abdomen and pelvis showed multifocal moderate to severe pancolitis. Appendix not well visualized. Lab and imaging findings discussed with the patient at bedside. Based on my examination of the patient today I believe that michelle colitis is a reasonable explanation for patient's symptoms rather than appendicitis, however I explained that if patient was very concerned about appendicitis we could repeat CT imaging with oral contrast. Patient stated that she did not want to undergo another scan at this time and would like to try treatment with antibiotics. Augmentin sent to pharmacy of choice. Patient counseled on the importance of GI follow up. Patient states that she has an active referral pending and is in the process of getting an appointment with a GI specialist. Discharge Plan Departure Patient Disposition: Home Clinical Impression: Colitis Instructions: DI for Colitis Activity Restrictions/Additional Instructions: Your CT today showed that you have patchy areas of inflammation in your colon, called ?proctocolitis?. The CT scan of your abdomen and pelvis today did not definitively show your appendix. I am hopeful that with the antibiotics prescribed today your colitis will improve, however if you notice worsening pain, or pain that localizes more to the right side then you may need repeat imaging with oral contrast. Finish all of your antibiotics even if you feel improved. Make sure to follow up with GI as referred. Prescriptions: New amoxicillin-pot clavulanate 875-125 mg tablet 1 tab PO Q12H Qty: 20 0RF No Action acyclovir 400 mg tablet 400 mg PO BID acyclovir 400 mg tablet 400 mg PO BID omeprazole 20 mg capsule,delayed release(DR/EC) 20 mg PO BID Qty: 60 0RF Referrals: Paris Umanzor ARNP [Primary Care Provider] - Stand Alone Forms: Patient Portal/API
[2023-10-05 20:21] LABS: Bacteria Urine Occasional (0-1); Calcium Oxalate Crystals Urine Few; Culture Indicated Urine Specimen Cultured; Mucus Urine 2+ (Negative); RBC Urine 0-1/HPF (0-5/HPF); Squamous Epithelial Cell Urine 0-1 /HPF (0-5/HPF); Urine Volume 10mL (spun); WBC Urine 0-1/HPF (0-5/HPF)
[2023-10-05] MEDS: AMOXICILLIN/CLAV 875/125 MG 1 TAB PO (20:54)
== END 2023-10-05 21:19 | disposition home or self-care (01) ==
PROVIDERS: Emergency Provider Emergency Medicine; Family Provider Physician Assistant Medical; PCP Registered Nurse
DX: K52.9 Noninfective gastroenteritis and colitis, unspecified (principal); R79.89 Other specified abnormal findings of blood chemistry
CPT/HCPCS: 36415; 74177; 80053; 81003; 81015; 83690; 85025; 87086; 93005; 99284

== ENCOUNTER → 2024-04-25 16:28 | Outpatient (CLI) | payer OTHER, SELFPAY ==
--- NOTE | 2024-04-25 16:30 | DI.RAD.S_ITS ---
PROCEDURE: XR CHEST 2V INDICATIONS: COUGH TECHNIQUE: 2 views of the chest were acquired. COMPARISON: [facility], [place], XR CHEST 2V, 09/16/2021, 12:31. [facility], CR, XR CHEST 2V, 06/01/2018, 13:44. FINDINGS: Surgical changes and devices: None. Lungs and pleura: Lungs are clear. No pleural effusions or pneumothorax. Mediastinum: Mediastinal contours are normal. Heart size is normal. Bones and chest wall: No suspicious bony abnormalities. Soft tissues appear unremarkable. IMPRESSION: No acute cardiopulmonary abnormality is seen. Approved by: Chas Lane M.D. on 04/26/2024 at 13:40
== END ==
PROVIDERS: Family Provider Physician Assistant Medical; PCP Registered Nurse; Referring Provider Registered Nurse; Visit Provider Registered Nurse
DX: R05.1 Acute cough (principal); R06.00 Dyspnea, unspecified
CPT/HCPCS: 71046

== ENCOUNTER → 2024-06-28 | Outpatient (CLI) | payer OTHER, SELFPAY ==
--- NOTE | 2024-06-28 15:46 | DI.CT.S_ITS ---
PROCEDURE: CT CHEST WO CON INDICATIONS: FOLLOW UP LUNG NODULE TECHNIQUE: Noncontrast 5 mm thick sections acquired from the pulmonary apices to the posterior costophrenic angles. 1 mm lung window, 5 mm thick coronal and sagittal and 7 mm axial MIP reformats were then acquired. For radiation dose reduction, the following was used: automated exposure control, adjustment of mA and/or kV according to patient size. COMPARISON: CT 11/11/2022 FINDINGS: Image quality: Diagnostic. Lower Neck: No enlarged lymph nodes. Thyroid: No thyroid nodules which require sonographic follow up, per consensus guidelines. Axillae: No enlarged lymph nodes. Chest Wall: Bilateral breast implants. Bones: Unremarkable. Lungs and Pleura: No pneumothorax or pleural effusions. Stable 7 x 5 mm solid nodule in the left lower lobe. Mild centrilobular emphysema. Heart: Heart size is normal. No pericardial effusion. Moderate coronary calcifications for age. Thoracic Vessels: The aorta and pulmonary arteries demonstrate normal size. Mediastinum and Sheron: No enlarged lymph nodes. Esophagus: No wall thickening. No hiatal hernia. Upper Abdomen: Visualized upper abdomen solid organs and bowel loops appear normal. IMPRESSION: Stable 7 x 5 mm solid nodule in the left lower lobe. Findings are benign based on stability from 2022. Consider annual low-dose lung cancer screening if eligible (age 50-85 who have a 20 pack-year smoking history and currently smoke or have quit within the last 15 years). Dictated by: Melvin Powers M.D. on 07/15/2024 at 9:29 Approved by: Melvin Powers M.D. on 07/15/2024 at 9:36
== END ==
LOC: CT 15:46
PROVIDERS: Family Provider Physician Assistant Medical; PCP Registered Nurse; Referring Provider Registered Nurse; Visit Provider Registered Nurse
DX: J43.2 Centrilobular emphysema (principal); R91.1 Solitary pulmonary nodule; I25.10 Atherosclerotic heart disease of native coronary artery without angina pectoris
CPT/HCPCS: 71250

== ENCOUNTER → 2024-08-31 10:38 | Outpatient (CLI) | payer OTHER, SELFPAY ==
--- NOTE | 2024-08-31 10:39 | DI.MRI.S_ITS ---
PROCEDURE: MR SHOULDER RT WO CON INDICATIONS: TEAR OF RIGHT ROTATOR CUFF TECHNIQUE: Noncontrast oblique coronal T2 fast spin echo with fat saturation, oblique sagittal T1 spin echo and T2 fast spin echo with fat saturation, axial T1 spin echo and T2 fast spin echo with fat saturation through the shoulder. COMPARISON: [facility], CR, XR SHOULDER 2+ VIEWS RIGHT, 08/07/2024, 16:00. FINDINGS: Partially degraded by metallic artifact. Rotator cuff: Partial obscuration of the rotator cuff secondary to metallic artifact. Moderate T2 signal elevation diffusely throughout the supraspinatus and infraspinatus tendons at the humeral insertion site extending to the musculotendinous junction. Superimposed low-grade multifocal intrasubstance and articular surface tears of the anterior, mid, and posterior supraspinatus tendon at the humeral insertion site extending to the musculotendinous junction. Low-grade articular surface tearing of the anterior, mid, and posterior infraspinatus tendon at the humeral insertion site extending to the musculotendinous junction. Subscapularis and teres minor tendons are intact. No rotator cuff atrophy. Bones and bursae: No bone marrow contusions or fractures. Metallic artifact adjacent to the acromioclavicular joint. Tendon anchor within the humeral head. Mild glenohumeral and moderate acromioclavicular joint degeneration. The acromion demonstrates conventional anatomy, without an os acromiale. No pathologic subacromial- subdeltoid or subcoracoid bursal fluid is present. Capsule and soft tissues: Linear high T2 signal intensity traverses the posterior inferior labrum. The long head of the biceps tendon demonstrates normal location and morphology. The rotator interval appears normal, without fibrosis. The coracohumeral ligament is normal in thickness. IMPRESSION: 1. Postsurgical sequelae. 2. Supraspinatus and infraspinatus tendinopathy with superimposed partial thickness tears. No full-thickness rotator cuff tear . 3. Acromioclavicular and glenohumeral joint osteoarthritis. 4. Possible posterior labral tear. Dictated by: Francine Alves M.D. on 09/02/2024 at 12:07 Approved by: Francine Alves M.D. on 09/02/2024 at 12:15
== END ==
PROVIDERS: Family Provider Physician Assistant Medical; PCP Registered Nurse; Referring Provider Preventive Medicine Public Health & General Preventive Medicine; Visit Provider Preventive Medicine Public Health & General Preventive Medicine
DX: M75.111 Incomplete rotator cuff tear or rupture of right shoulder, not specified as traumatic (principal); M19.011 Primary osteoarthritis, right shoulder
CPT/HCPCS: 73221

== ENCOUNTER → 2024-09-04 10:01 | Outpatient (CLI) | payer OTHER, SELFPAY ==
--- NOTE | 2024-09-04 | DI.RAD.S_ITS ---
PROCEDURE: FL ARTHROGRAM WRIST LT INDICATIONS: traumatic tear of triangular fibrocartilage COMPARISON: None. TECHNIQUE: After informed consent had been obtained, the wrist was examined fluoroscopically, and a site chosen for injection of the radiocarpal compartment from a dorsal approach. Skin was prepped and draped in a sterile fashion and 1% lidocaine infiltrated from the skin down to the articular surface. A hypodermic needle was then introduced into the articular space and a modest amount of contrast medium was instilled confirming intra-articular needle tip placement. This was followed by approximately 4 mL of a dilute gadolinium solution. Needle was removed and dressing was applied. The patient experienced no complications throughout the procedure and left the fluoroscopic suite in no apparent distress. FINDINGS: A single fluoroscopic spot image demonstrates intra-articular location to injected iodinated contrast. Anchors at the 1st and 2nd metacarpals. IMPRESSION: Successful fluoroscopic-guided administration of dilute Gadolinium solution for wrist MR arthrogram. Dictated by: Dale Alegria M.D. on 09/04/2024 at 11:17 Approved by: Dale Alegria M.D. on 09/04/2024 at 11:18
--- NOTE | 2024-09-04 | DI.MRI.S_ITS ---
PROCEDURE: MR WRIST LT W CON INDICATIONS: traumatic tear of triangular fibrocartilage TECHNIQUE: After the administration of 3-4 mL of dilute intra-articular Gadolinium contrast into the radiocarpal compartment, coronal T1 spin echo with fat saturation and T2 fast spin echo with fat saturation, axial T1 spin echo and T2 fast spin echo with fat saturation, sagittal T1 spin echo with and without fat saturation through the wrist. COMPARISON: [facility], MR, MR WRIST LEFT WITHOUT CONTRAST, 01/24/2024, 16:21. FINDINGS: Image quality: Excellent. Bones and cartilage: Status post resection of the trapezium with ligamentous reconstruction. Mild degenerative changes of the triscaphe joint. Moderate degenerative changes of the pisiform and triquetrum articulation, with progressed, marked subchondral marrow edema in the triquetrum. Additional multifocal T2 hyperintensity within the carpal bones, nonspecific and some which may be degenerative. No acute fracture. A suture anchor is seen in the distal ulna diaphysis. Carpal ligaments: Full-thickness tear of the central and volar component of the scapholunate ligament. No widening of the scapholunate interval. High-grade tear of the central component of the lunotriquetral ligament (04:10). Triangular fibrocartilage complex: Full-thickness tear of the central disc, with moderate amount of contrast extravasating into the distal radioulnar joint. Tendons and soft tissues: The flexor tendons unremarkable. Mild tenosynovitis of the 2nd extensor tendon compartment, at the level of the distal radius. IMPRESSION: 1. Status post resection of the trapezium with ligamentous reconstruction. 2. Moderate degenerative changes of the pieces form and triquetrum articulation with progressed, marked subchondral marrow edema in the triquetrum. 3. Full-thickness tear of the central volar component of the scapholunate ligament. 4. High-grade tear of the central component lunotriquetral ligament. 5. Full-thickness tear of the central disc of the triangular fibrocartilage. 6. Mild tenosynovitis of the 2nd extensor tendon compartment. Dictated by: Stephanie Merritt M.D. on 09/04/2024 at 11:49 Approved by: Stephanie Merritt M.D. on 09/04/2024 at 12:03
[2024-09-04] MEDS: LIDOCAINE 1% 20 ML INJ (11:00)
[2024-09-04] MEDS: SODIUM CHLORIDE 0.9 % 20 ML VIAL IV (11:01)
== END ==
LOC: RAD 10:01
PROVIDERS: Family Provider Physician Assistant Medical; PCP Registered Nurse; Referring Provider Orthopaedic Surgery; Visit Provider Orthopaedic Surgery
DX: S63.592A Other specified sprain of left wrist, initial encounter (principal); M65.832 Other synovitis and tenosynovitis, left forearm; Z98.890 Other specified postprocedural states; X58.XXXA Exposure to other specified factors, initial encounter
CPT/HCPCS: 25246; 73115; 73222; A9579; Q9967

== ENCOUNTER → 2024-09-30 16:16 | Outpatient (CLI) | payer OTHER, SELFPAY ==
--- NOTE | 2024-09-30 16:20 | DI.MRI.S_ITS ---
PROCEDURE: MR LOWER LEG LT WO CON COMPARISON: None. INDICATIONS: pain in left leg - possible stress fxs FINDINGS: Image quality: Excellent Bones: Moderate subchondral marrow edema in the right medial femoral condyle, favoring degenerative, incompletely evaluated. 4 mm subchondral cystic changes at the left medial talus dome, concerning for osteochondral injury, incompletely evaluated. Small T2 hyperintensity at the left lateral femoral condyle, favor reactive. No stress changes in the left tibia and fibula. No acute fracture. Soft tissue findings: Muscles are normal in signal. The distal Achilles tendon is intact. Mild tenosynovitis of the posterior tibialis and the flexor digitorum longus tendon at the level of the ankle. Longitudinal split tear of the peroneal brevis at the level of the lateral malleolus. IMPRESSION: 1. 4 mm osteochondral injury in the left medial talus dome, incompletely evaluated. Further evaluation with dedicated ankle MRI can be considered if clinically indicated. 2. No stress changes or acute fracture in the left leg. 3. Tenosynovitis of the flexor tendon and longitudinal split tear of the peroneal brevis at the ankle, incompletely evaluated. Further evaluation with dedicated ankle radiograph can be considered. Dictated by: Stephanie Merritt M.D. on 10/01/2024 at 10:25 Approved by: Stephanie Merritt M.D. on 10/01/2024 at 10:33
== END ==
PROVIDERS: Family Provider Physician Assistant Medical; PCP Registered Nurse; Referring Provider Orthopaedic Surgery Foot and Ankle Surgery; Visit Provider Orthopaedic Surgery Foot and Ankle Surgery
DX: S96.812A Strain of other specified muscles and tendons at ankle and foot level, left foot, initial encounter (principal); M79.662 Pain in left lower leg; M65.962 Unspecified synovitis and tenosynovitis, left lower leg
CPT/HCPCS: 73718

== ENCOUNTER → 2024-09-30 16:17 | Outpatient (CLI) | payer OTHER, SELFPAY ==
[2024-09-30 18:38] LABS: Add Manual Diff / Slide Review NO; Hematocrit 35.3 % (36-46); Hemoglobin 12.2 g/dL (12.0-16.0); Lymphocytes Absolute Auto 3100 /uL (1100-4500); Mean Corpuscular HGB Conc 34.5 % (30-36); Mean Corpuscular Hemoglobin 30.2 PG (26-34); Mean Corpuscular Volume 87.7 fL (80-100); Platelet Count 372 X10^3/uL (150-400)
[2024-09-30 18:40] LABS: Alanine Aminotransferase 30 IU/L (<35); Albumin 4.9 g/dL (3.5-5.0); Albumin Globulin Ratio 1.7 (1.0-2.8); Alkaline Phosphatase 62 U/L (38-126); Blood Urea Nitrogen 21 mg/dL (7-17); Calcium 9.7 mg/dL (8.4-10.2); Carbon Dioxide 27 mmol/L (22-32); Chloride 99 mmol/L (98-107); Estimated Glomerular Filt Rate > 60 mL/min (>60); Globulin 2.9 g/dL (1.7-4.1); Glucose 59 mg/dL (70-99); HEMOLYSIS < 15 (0-50); Potassium 4.2 mmol/L (3.4-5.1); Sodium 135 mmol/L (137-145); Total Protein 7.8 g/dL (6.3-8.2)
== END ==
PROVIDERS: Family Provider Physician Assistant Medical; PCP Registered Nurse; Referring Provider Internal Medicine Gastroenterology; Visit Provider Internal Medicine Gastroenterology
DX: K52.9 Noninfective gastroenteritis and colitis, unspecified (principal)
CPT/HCPCS: 36415; 80053; 85025; 85651; 86140

== ENCOUNTER → 2024-10-10 15:12 | Outpatient (CLI) | payer OTHER, SELFPAY ==
--- NOTE | 2024-10-10 15:12 | DI.RAD.S_ITS ---
PROCEDURE: XR DEXA AXIAL SKELETON INDICATIONS: Osteoporosis Screening COMPARISON: None. FINDINGS: Lumbar Spine: Bone mineral density 0.857 g/cm2, T score -1.7. Left Femoral Neck: Bone mineral density 0.639 g/cm2, T score -1.9. Left Hip: Bone mineral density 0.764 g/cm2, T score -1.5. Fracture Risk Calculation (when applicable): 10-year fracture risk of a major osteoporotic fracture 10 percent and of a hip fracture 1.4 percent. (T score greater or equal to -1.0 to: NORMAL) (T score from -1.1 to -2.4: OSTEOPENIA) (T score less than or equal to -2.5: OSTEOPOROSIS) IMPRESSION: Osteopenia Follow-up guidelines as follows: Osteoporosis: Consider a repeat DEXA and Vertebral Fracture Assessment (VFA) exam in 2 years or sooner if medically necessary, to reassess this patient's status. Osteopenia: Consider a repeat DEXA in 2-3 years to reassess this patient's status, or if there is a new clinical indication. Normal: Consider a repeat DEXA in 5 years or sooner, or if there is a new clinical indication. All treatment decisions require clinical judgment and consideration of individual patient factors, including patient preferences, comorbidities, previous drug use, risk factors not captured in the FRAX model (e.g., frailty, falls, vitamin D deficiency, increased bone turnover, interval significant decline in bone density ) and possible under- or over-estimation of fracture risk by FRAX. In addition, the NOF Guide recommends that FDA-approved medical therapies be considered in postmenopausal women and men age >= 50 years with a: * Hip or vertebral (clinical or morphometric) fracture * T-score of <=-2.5 at the spine or hip * Ten-year fracture probability by FRAX of >= 3% for hip fracture or >=20% for major osteoporotic fracture. Dictated by: David Constantino M.D. on 10/11/2024 at 13:24 Approved by: David Constantino M.D. on 10/11/2024 at 13:38
== END ==
LOC: RAD 15:12
PROVIDERS: Family Provider Physician Assistant Medical; PCP Registered Nurse; Referring Provider Registered Nurse; Visit Provider Registered Nurse
DX: Z13.820 Encounter for screening for osteoporosis (principal); M85.89 Other specified disorders of bone density and structure, multiple sites; Z78.0 Asymptomatic menopausal state
CPT/HCPCS: 77080

== ENCOUNTER → 2024-12-12 14:42 | Outpatient (CLI) | payer OTHER, SELFPAY | LOC: PHYS 14:43 | PROVIDERS: Family Provider Physician Assistant Medical; PCP Registered Nurse; Referring Provider Orthopaedic Surgery Foot and Ankle Surgery; Visit Provider Orthopaedic Surgery Foot and Ankle Surgery | DX: R20.0 Anesthesia of skin (principal) | CPT/HCPCS: 95886; 95910 ==